=== PATIENT | male | born 1940 | race Caucasian/White ===

== ENCOUNTER → 2017-04-22 | Outpatient (CLI) | payer OTHER, MEDICARE | LOC: BRMIMAGING 12:52 | PROVIDERS: ATTEND Family Medicine | DX: N43.3 Hydrocele, unspecified (principal); N44.2 Benign cyst of testis | CPT/HCPCS: 76870-PO ==

== ENCOUNTER → 2017-10-10 | Outpatient (CLI) | payer OTHER, MEDICARE | LOC: BRMIMAGING 11:26 | PROVIDERS: ATTEND Family Medicine | DX: N44.2 Benign cyst of testis (principal); N50.3 Cyst of epididymis | CPT/HCPCS: 76870-PO ==

== ENCOUNTER 2018-04-21 10:41 | Emergency (ER) | payer OTHER, MEDICARE ==
[2018-04-21] MEDS ORDERED: DILTIAZEM 25 MG/5 ML VIAL IVP ONE ×2 (10:51→11:44)
[2018-04-21] MEDS: NS 1,000 ML IV ONE ×2 (10:53→11:45)
--- NOTE | 2018-04-21 11:12 | EDPHY ---
HPI/HX/ROS/PE/MDM Narrative: CHIEF COMPLAINT: Tachycardia HPI: The patient is a 77-year-old male with no known cardiac disease but a history of hypertension. He arrives via wheelchair from [facility] located upstairs. The patient was scheduled for colonoscopy this morning and on arrival to that test, explain to the provider that he had had approximately 2 near syncopal episodes this morning. This was attributed to dehydration and they moved forward with administration of 3 mg of Versed and 75 mcg of fentanyl. Upon hooking the patient up to the monitor they noticed that his heart rate was in the 140s and was irregular so have sent him to the ER for evaluation. The patient denies any complaints at this moment, and denies chest pain or shortness of breath at any time today. He has never been diagnosed with a heart arrhythmia and underwent series of tests while on vacation in [facility] several years ago for a similar episode. He takes lisinopril for blood pressure but did not take his medication this morning. REVIEW OF SYSTEMS: Aside from elements discussed in the HPI, a comprehensive 10-point review of systems was reviewed and is negative. PMH: Includes hypertension, known history of heart disease or arrhythmia. 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 . Lives in [place]. PHYSICAL EXAM: General:Patient is alert, in no acute distress. ENT:Eyes are normal to inspection. ENT inspection normal. Neck: Normal inspection. Full range of motion. Respiratory:No respiratory distress. Breath sounds normal bilaterally. Cardiovascular: Tachycardic, regular rate. Strong peripheral pulses. Abdomen:The abdomen is nontender to palpation. There are no peritoneal signs. There are normal bowel sounds. Back: Normal to inspection. No tenderness to palpation. Skin: Normal color. No rash. Warm and dry. Extremities: Normal appearance. Full range of motion. Neuro: Oriented x3. Normal motor function. Normal sensory function. ED Course: On arrival, the patient was noted to be in rapid atrial fibrillation. I have ordered IV fluids and given the patient a 10 mg bolus dose of diltiazem which quickly lowered his heart rate to the upper 90s and improved his blood pressure to approximately 110 systolic. Patient required an additional 10 mg bolus of diltiazem which he tolerated quite well. 12:40 p.m. I consulted Noel from [facility]. We discussed options and arranged for patient to be transferred over to [facility] in order to undergo a HYUN cardioversion. As I was discussing this with the patient, he converted to normal sinus rhythm. As such, we will plan on an outpatient management. 1:15pm: Noel has arranged for close outpatient follow-up tomorrow with Cardiology. He has recommended that I start the patient on Eliquis which the patient has agreed to. He remains hemodynamically stable in normal sinus rhythm and completely comfortable without evidence of chest pain or shortness of breath. I think he is safe for outpatient management. - Data Points Laboratory Results: 04/21/18 04/21/18 11:03 11:00 POC Sodium 141 mEq/L mEq/L (135-145) POC Potassium 3.1 mEq/L L mEq/L (3.3-5.0) POC Chloride 103.0 mEq/L mEq/L (97-110) POC Total CO2 25 mEq/L mEq/L (22-31) POC BUN 9 mg/dL mg/dL (7-23) POC Creatinine 0.7 mg/dL mg/dL (0.7-1.3) POC Glucose 101 mg/dL H mg/dL (70-100) POC Calcium 9.2 mg/dL mg/dL (8.5-10.4) POC Troponin I 0.01 ng/mL ng/mL (0.00-0.08) Medications Given: Discontinued Medications Apixaban (Eliquis) 5 mg PO EDNOW ONE Stop: 04/21/18 12:43 Last Admin: 04/21/18 13:21 Dose: 5 mg Diltiazem HCl (Cardizem 25 Mg/5 Ml Vial) 10 mg IVP EDNOW ONE Stop: 04/21/18 10:52 Last Admin: 04/21/18 10:55 Dose: 10 mg Diltiazem HCl (Cardizem 25 Mg/5 Ml Vial) 10 mg IVP EDNOW ONE Stop: 04/21/18 11:45 Last Admin: 04/21/18 12:19 Dose: 10 mg Sodium Chloride (Ns) 1,000 mls @ 0 mls/hr IV EDNOW ONE; Wide Open PRN Reason: Protocol Stop: 04/21/18 10:46 Last Admin: 04/21/18 10:53 Dose: 1,000 mls Sodium Chloride (Ns) 500 mls @ 1,500 mls/hr IV ONCE ONE Stop: 04/21/18 12:04 Last Admin: 04/21/18 11:45 Dose: 500 mls Point of Care Test Results: CBC CBC Collection Date 04/21/18 CBC Collection Time 10:50 WBC 7.5 RBC 5.29 HGB 17.6 HCT 48.5 PLT 236 Neut # 5.9 Neut 78.8 LYMPH # 1.2 LYMPH 15.8 Other WBC # 0.4 Other WBC 5.4 MCV 91.7 Chemistry 04/21/18 04/21/18 11:03 11:00 POC Sodium 141 mEq/L mEq/L (135-145) POC Potassium 3.1 mEq/L L mEq/L (3.3-5.0) POC Chloride 103.0 mEq/L mEq/L (97-110) POC Total CO2 25 mEq/L mEq/L (22-31) POC BUN 9 mg/dL mg/dL (7-23) POC Creatinine 0.7 mg/dL mg/dL (0.7-1.3) POC Glucose 101 mg/dL H mg/dL (70-100) POC Calcium 9.2 mg/dL mg/dL (8.5-10.4) POC Troponin I 0.01 ng/mL ng/mL (0.00-0.08) General Time Seen by Provider: 04/21/18 10:45 Initial Vital Signs: Initial Vital Signs Temperature (C) 36.3 C 04/21/18 10:45 Heart Rate 135 H 04/21/18 10:45 Respiratory Rate 20 04/21/18 10:45 Blood Pressure 106/85 H 04/21/18 10:45 O2 Sat (%) 95 04/21/18 10:45 O2 Delivery Mode Nasal Cannula O2 (L/minute) 2 Allergies/Adverse Reactions: No Known Allergies Allergy (Verified 04/21/18 10:43) Home Medications: Medication Instructions Recorded Apixaban [Eliquis] 5 mg PO BID #20 tab 04/21/18 Aspirin 81mg (*) 04/21/18 Lisinopril 04/21/18 Vitamin D3 04/21/18 Departure - Departure Disposition: Home, Routine, Self-Care Clinical Impression: Atrial fibrillation with rapid ventricular response Condition: Good Instructions: Apixaban (By mouth), A-fib (Atrial Fibrillation) (ED) Additional Instructions: You have an appointment with Cardiology tomorrow afternoon. Take medication as prescribed. Return to the ED immediately for chest pain, shortness of breath, fast heart rate, passing out or other concerns. Referrals: Juju Laguna PA [Physician Rn Er] - (04/22/2018 at 1:15 pm) Bonnie Thompson MD [Primary Care Provider] - As per Instructions Prescriptions: Apixaban [Eliquis] 5 mg PO BID #20 tab
[2018-04-21] MEDS ORDERED: NS 500 ML IV ONE (11:45)
[2018-04-21] MEDS ORDERED: APIXABAN 5 MG TAB PO ONE (12:42)
[2018-04-21 14:09] VITALS: BP 116/69
--- NOTE | 2018-04-24 15:00 | CPEKG ---
Test Reason : OPEN Blood Pressure : / mmHG Vent. Rate : 135 BPM Atrial Rate : 140 BPM P-R Int : 096 ms QRS Dur : 086 ms QT Int : 338 ms P-R-T Axes : 000 -18 052 degrees QTc Int : 507 ms Atrial fibrillation Borderline left axis deviation Abnormal R-wave progression, early transition Prolonged QT interval Confirmed by Portillo Maxwell ([id number]) on 04/24/2018 3:00:31 PM Referred By: Confirmed By:Portillo Maxwell
== END 2018-04-21 13:35 | disposition home or self-care (01) ==
LOC: CED 10:41
DX: I48.91 Unspecified atrial fibrillation (principal); E86.9 Volume depletion, unspecified
CPT/HCPCS: 80048-PO; 84484-PO; 96374

== ENCOUNTER → 2018-04-22 | Outpatient (CLI) | payer OTHER, MEDICARE | LOC: BHFA 13:45 | PROVIDERS: ATTEND Physician Assistant Medical | DX: I48.91 Unspecified atrial fibrillation (principal); I10 Essential (primary) hypertension ==

== ENCOUNTER → 2018-09-29 | Outpatient (CLI) | payer OTHER, MEDICARE | LOC: BRMIMAGING 11:07 | DX: N44.2 Benign cyst of testis (principal); N50.3 Cyst of epididymis; N43.3 Hydrocele, unspecified | CPT/HCPCS: 76870-PO ==